=== PATIENT | female | born 1970 | race Caucasian/White ===

== ENCOUNTER 2024-06-04 05:28 | Day surgery (SDC) | payer BC ==
[2024-05-28 10:42] LABS: BASOPHILS # (AUTO) 0.1 X10'3 (0-0.2); BASOPHILS % (AUTO) 0.6 % (0-1); EOSINOPHILS # (AUTO) 0.4 X10'3 (0-0.9); EOSINOPHILS % (AUTO) 4.4 % (0-6); LYMPHOCYTES # (AUTO) 2.3 X10'3 (1.1-4.8); LYMPHOCYTES % (AUTO) 22.6 % (21-51); MEAN CORPUSCULAR HEMOGLOBIN 30.6 PG (27.0-31.0); MEAN CORPUSCULAR HGB CONC 33.3 g/dL (33.0-36.5); MEAN CORPUSCULAR VOLUME 91.8 FL (78-98); MEAN PLATELET VOLUME 10.1 FL (7.4-10.4); MONOCYTES # (AUTO) 0.7 X10'3 (0-0.9); MONOCYTES % (AUTO) 7.1 % (2-12); NEUTROPHILS # (AUTO) 6.5 X10'3 (1.8-7.7); NEUTROPHILS % (AUTO) 65.3 % (42-75); PRE OP PLATELET COUNT 244 X10'3 (140-440); RED BLOOD COUNT 3.92 X10'6 (4.20-5.60); RED CELL DISTRIBUTION WIDTH 13.9 % (11.5-14.5)
[2024-05-28 11:03] LABS: ALBUMIN 3.7 G/DL (3.4-5.0); ALBUMIN/GLOBULIN RATIO 1.1 (1.1-1.5); ALKALINE PHOSPHATASE 58 IU/L (46-116); BLOOD UREA NITROGEN 15 MG/DL (7-18); BUN/CREATININE RATIO 14.2 (10.0-20.0); CALCIUM 8.7 MG/DL (8.5-10.1); CHLORIDE 107 MMOL/L (99-107); CREATININE 1.06 MG/DL (0.40-0.90); PRE OP ALT 30 U/L (30-65); PRE OP ANION GAP 11 (8-16); PRE OP AST 22 U/L (10-37); PRE OP BILIRUB, TOTAL 0.5 MG/DL (0.0-1.0); PRE OP GLUCOSE 106 MG/DL (70-104); PRE OP SODIUM 143 MMOL/L (135-145); TOTAL CARBON DIOXIDE 25.5 MMOL/L (24-32); TOTAL PROTEIN 7.2 G/DL (6.4-8.2); eGFR 54 ML/MIN
[2024-05-28 11:08] LABS: PRE OP POTASSIUM 4.5 MMOL/L (3.4-5.1)
[2024-06-04] VITALS (7 sets, daily range): BP systolic 121–140; BP diastolic 56–90; PULSE 68–90; RESP 10–19; TEMP 98.9; O2SAT 95–100
[~2024-06-04] VITALS: Ht 157.5 cm; Wt 100.7 kg
[~2024-06-04 05:28] MED LIST: ALBU90AE INH; EST1T PO; GABA-1405 PO; LISI10TA27 PO; MELO-102 PO; OMEP40CA21 PO; PROG200C11 PO; SERT-434 PO
[2024-06-04] MEDS: famotidine 20mg tablet PO ONE (05:57)
[2024-06-04] MEDS: ringers solution, lacted 1,000 ML IV SCH (05:58)
[2024-06-04] MEDS: ceFAZolin 2gm in dextrose, iso 50 ML IV ONE (05:58)
[2024-06-04] MEDS ORDERED: BUPIVAcaine 2.5mg/ml inj 50ml vial (contains preservative) ONE (07:08)
[2024-06-04] MEDS ORDERED: LIDOcaine 1% 30ml preserv. free vial ONE (07:08)
[2024-06-04] MEDS ORDERED: midazolam 1 mg/ML 2ml injection ONE (07:18)
[2024-06-04] MEDS ORDERED: sevoflurane 250ml liquid IH ONE (07:24)
[2024-06-04] MEDS ORDERED: HYDROmorphone/PF 0.2 MG/ML SYRINGE IV PRN ×2 (07:25)
[2024-06-04] MEDS ORDERED: ringers solution, lacted 1,000 ML IV SCH (07:25)
[2024-06-04] MEDS ORDERED: morphine 4 MG/ML inj SYRINge IV PRN (07:25)
[2024-06-04] MEDS ORDERED: hydrALAZINE 20mg/ml inj. IV PRN (07:25)
[2024-06-04] MEDS ORDERED: meperidine/PF 25mg/ml syringe IV PRN (07:25)
[2024-06-04] MEDS ORDERED: proCHLORperazine 10 MG/2 ml inj IV PRN (07:25)
[2024-06-04] MEDS ORDERED: ondansetron/PF 4mg/2ml inj IV PRN (07:25)
[2024-06-04] MEDS ORDERED: labetalol 20mg/4ml (5mg/ml) syringe IV PRN (07:25)
[2024-06-04] MEDS ORDERED: morphine 2 MG/ML inj. syringe IV PRN (07:25)
[2024-06-04] MEDS ORDERED: acetaminophen 1,000mg/100ml IV 100 ML IV ONE (07:25)
[2024-06-04] MEDS ORDERED: fentaNYL /PF 50mcg/ml 5ml ampule ONE (07:29)
[2024-06-04] MEDS ORDERED: LIDOcaine 2% (20mg/ml) 5ml vial ONE (07:44)
[2024-06-04] MEDS ORDERED: propofol inj 20 ML IV ONE ×2 (07:44→08:16)
[2024-06-04] MEDS ORDERED: rocuronium 10mg/ml inj IV ONE (07:44)
[2024-06-04] MEDS ORDERED: dexamethasone sod phosphate 4mg/ml inj. ONE (07:45)
[2024-06-04] MEDS ORDERED: ondansetron/PF 4mg/2ml inj ONE (07:45)
[2024-06-04] MEDS ORDERED: glycopyrrolate 0.2mg/ml inj ONE ×2 (07:49→08:16)
[2024-06-04] MEDS ORDERED: 0.9 % SODIUM CHLORIDE 10 ML VIAL ONE (07:51)
[2024-06-04] MEDS ORDERED: ePHEDrine 50MG/ML INJ. ONE (07:51)
[2024-06-04] MEDS ORDERED: neostigmine methylsulfate 1 MG/ML 10ml vial ONE (08:16)
[2024-06-04] MEDS ORDERED: HYDROcodone/acetaminophen 5mg/325mg tablet PO PRN (08:45)
== END 2024-06-04 09:28 | disposition home or self-care (01) ==
LOC: PAS 05:28
PROVIDERS: ATTEND Surgery
DX: R22.1 Localized swelling, mass and lump, neck (principal); I10 Essential (primary) hypertension; G47.33 Obstructive sleep apnea (adult) (pediatric); E66.9 Obesity, unspecified; E78.5 Hyperlipidemia, unspecified; K21.9 Gastro-esophageal reflux disease without esophagitis; F41.9 Anxiety disorder, unspecified; F32.A Depression, unspecified; G62.9 Polyneuropathy, unspecified; I25.2 Old myocardial infarction; M19.90 Unspecified osteoarthritis, unspecified site; Z79.890 Hormone replacement therapy; Z79.899 Other long term (current) drug therapy; Z98.891 History of uterine scar from previous surgery; Z90.710 Acquired absence of both cervix and uterus; Z68.41 Body mass index [BMI] 40.0-44.9, adult; Z82.49 Family history of ischemic heart disease and other diseases of the circulatory system; Z82.61 Family history of arthritis
CPT/HCPCS: 21556; 36415; 80053; 82948; 85025; 93005; J0690; J1100; J2003; J2250; J2405; J2704; J2710; J3010; J3490; J7120; Z7512; A4215; A4618; A7000